=== PATIENT | male | born 1935 | race Caucasian/White ===

== ENCOUNTER 2019-03-01 21:19 | Emergency (ER) | payer MEDICARE, OTHER ==
[~2019-03-01] VITALS: Ht 188 cm; Wt 99.8 kg
[2019-03-01] MEDS ORDERED: LIDOCAINE 2% VISCOUS 15 ML UDC PO ONE (21:45)
--- NOTE | 2019-03-01 21:56 | ED General ---
General Chief Complaint: Bite-Animal/Human/Insect Stated Complaint: TICK EMBEDDED IN RT ANKLE Nursing Triage Note: TICK IN RIGHT LOWER LEG. IT WAS FOUND 45 MIN. AGO BUT A SPOT HAD BEEN NOTICED FOR A WEEK, FELT LIKE A BUMP ITCHING BUT NOT TENDER. Nursing Sepsis Screen: No Definite Risk History of Present Illness Date Seen by Provider: Mar 01, 2019 Time Seen by Provider: 21:54 Initial Comments Patient has had a tick attached to his right lower anterior rothman for approximately one week. His just found out about it tonight and there was concern given how long he has been attached to come be evaluated in the emergency room. Patient has not had any fevers chills arthralgias myalgias rash headache nausea vomiting or abdominal pain. He says that he is healthy with up-to-date immunizations. Allergies and Home Medications Allergies Coded Allergies: No Known Drug Allergies (Unverified , 03/01/19) Patient Home Medication List Home Medication List Reviewed: Yes Review of Systems Review of Systems Constitutional: No chills, No fever Respiratory: No cough Cardiovascular: No chest pain Gastrointestinal: No abdominal pain Musculoskeletal: No joint pain, No joint swelling, No muscle pain Skin: No rash Past Oabdybv-Ytvoig-Hlylyg Hx Patient Social History Recent Foreign Travel: No Contact w/Someone Who Travel: No Recent Infectious Disease Expo: No Physical Exam Vital Signs Vital Signs - First Documented 03/01/19 21:33 Temp 97.2 Pulse 77 Resp 16 B/P (MAP) 130/115 (120) Capillary Refill : Less Than 3 Seconds Height, Weight, BMI Height: 6'2.00" Weight: 220lbs. oz. 99.189350pl; BMI Method:Stated General Appearance: No Apparent Distress, WD/WN Respiratory: Lungs Clear Cardiovascular: Regular Rate, Rhythm Neurologic/Psychiatric: Alert, Oriented x3 Skin: Normal Color, Warm/Dry, Other (tick attached to R lower anterior rothman. No surrounding cellulitis or rash noted. ) Progress/Results/Core Measures Suspected Sepsis Recent Fever Within 48 Hours: No Infection Criteria Present: None New/Unexplained Altered Menta: No Sepsis Screen: No Definite Risk SIRS Temperature:97.2 Pulse: 77 Respiratory Rate: 16 Blood Pressure 130 /115 Mean: 120 Results/Orders My Orders Orders - VANE MOODY DO Lidocaine 2% Viscous 15 Ml (Xylocaine Vi (03/01/19 21:45) Doxycycline Hyclate Tablet (Vibramycin T (03/01/19 22:00) Vital Signs/I&O 03/01/19 21:33 Temp 97.2 Pulse 77 Resp 16 B/P (MAP) 130/115 (120) Capillary Refill : Less Than 3 Seconds Blood Pressure Mean: 120 Progress Note : Progress Note Viscous lidocaine was placed on the tick for approximately 30 minutes and appeared to kill the tick. I used forceps with gentle direct traction and the tick was removed and there was no signs of retained body parts on post-wound examination. Given tick had been present for more than 72 hours a prophylactic dose of doxycycline was given. I told him that he should have the wound rechecked on with his primary care provider which he said he would be able to do. I told him to return with any signs of worsening wound infection or other concerning symptoms such as fevers chills arthralgias or myalgias. Patient and are aware and agreeable with plan and verbalizes understanding of the above instructions. Departure Impression Primary Impression: Tick bite Disposition: 01 HOME, SELF-CARE Condition: Stable Departure-Patient Inst. Decision time for Depature: 22:17 Referrals: DARSHAN MORENO MD (PCP) Primary Care Physician VANE MOODY DO Mar 01, 2019 21:56
[2019-03-01] MEDS ORDERED: DOXYCYCLINE 100 MG (VIBRAMYCIN) TABLET PO SCH (22:00)
[2019-03-01 22:17] VITALS: BP 126/82
== END 2019-03-01 22:19 | disposition home or self-care (01) ==
LOC: ER FS 21:20
DX: S80.861A Insect bite (nonvenomous), right lower leg, initial encounter (principal); W57.XXXA Bitten or stung by nonvenomous insect and other nonvenomous arthropods, initial encounter
CPT/HCPCS: 99283

== ENCOUNTER 2020-01-27 15:33 | Emergency (ER) | payer MEDICARE, OTHER ==
[~2020-01-27] VITALS: Ht 187.9 cm; Wt 97.9 kg
[2020-01-27 15:56] LABS: HEMATOCRIT 44 % (40-54); HEMOGLOBIN 14.8 G/DL (13.3-17.7); MEAN CORPUSCULAR HEMOGLOBIN 33 PG (25-34); MEAN CORPUSCULAR HGB CONC 34 G/DL (32-36); MEAN CORPUSCULAR VOLUME 99 FL (80-99); WHITE BLOOD COUNT 7.4 10^3/uL (4.3-11.0)
[2020-01-27 15:57] LABS: BASOPHILS % (AUTO) 0 % (0-10); EOSINOPHILS % (AUTO) 0 % (0-10); LYMPHOCYTES # (AUTO) 0.4 X 10^3 (1.0-4.0); LYMPHOCYTES % (AUTO) 5 % (12-44); MEAN PLATELET VOLUME 10.5 FL (7.4-10.4); MONOCYTES # (AUTO) 0.1 X 10^3 (0.0-1.0); MONOCYTES % (AUTO) 1 % (0-12); NEUTROPHILS % (AUTO) 94 % (42-75); PLATELET COUNT 150 10^3/uL (130-400)
--- NOTE | 2020-01-27 16:03 | Diagnostic Imaging Report ---
INDICATION: Chest pain. TIME OF EXAM: 3:53 p.m. COMPARISON: No prior studies are available for comparison. FINDINGS: The heart size is normal. The pulmonary vascularity is unremarkable. The lungs are clear. No infiltrate, effusion or pneumothorax is detected. IMPRESSION: No acute cardiopulmonary process is detected. Dictated by: Dictated on workstation # [id number]
[2020-01-27 16:13] LABS: BAND NEUTROPHILS 0 %; BASOPHILS % (MANUAL) 0 %; EOSINOPHILS % (MANUAL) 0 %; LYMPHOCYTES % (MANUAL) 9 %; MONOCYTES % (MANUAL) 0 %; NEUTROPHILS % (MANUAL) 91 %
--- NOTE | 2020-01-27 16:16 | ED General ---
General Chief Complaint: Chest Pain Stated Complaint: CHEST PAIN Nursing Triage Note: Pt ambulatory from [facility] offices with c/o left shoulder pain radiating to left arm and into back. Pt reports pain for up to 10 days. Nursing Sepsis Screen: No Definite Risk Source of Information: Patient, Family Exam Limitations: No Limitations History of Present Illness Date Seen by Provider: Jan 27, 2020 Time Seen by Provider: 13:50 Initial Comments Patient presents with 1 week of intermittent left shoulder pain radiating to his left wrist. Pain comes and goes and seems to be precipitated by certain movements or positions. They last from a few seconds to 20 minutes. Last night was the worst while he was just laying in bed. Has also noticed when raising his left arm over his head to reach in a cabinet or washing his hair, this precipitates sharp and burning pain in the left shoulder. Denies chest pain, palpitations, rapid heart rate or shortness of air. Denies any abdominal pain, nausea, vomiting or diaphoresis. Denies weight loss or back pain. Denies any pain in his ear, neck or jaw on the same side. On arrival patient is pain free and feels fine. Prior to arrival he had pain while driving and using his left hand on top of steering wheel. Denies history of Heart of lung problems. Recently saw PCP, aware of A.fib, was instructed to start taking a baby ASA. Allergies and Home Medications Allergies Coded Allergies: No Known Drug Allergies (Unverified , 03/01/19) Home Medications Hydrocodone/Acetaminophen 1 Each Tablet, 1 TAB PO Q6H Prescribed by: ARDEN DOWNS on 01/27/20 1650 Patient Home Medication List Home Medication List Reviewed: Yes Review of Systems Review of Systems Constitutional: see HPI; No chills, No diaphoresis, No dizziness, No fever, No malaise, No weakness, No weight loss EENTM: No ear pain Respiratory: see HPI Cardiovascular: see HPI; No chest pain, No edema, No palpitations, No syncope Gastrointestinal: see HPI; No abdominal pain, No heartburn, No loss of appetite, No nausea, No vomiting Musculoskeletal: No back pain; joint pain (left shoulder) Past Havrgqx-Fqwmbr-Ozqmdh Hx Past Med/Social Hx: Reviewed Nursing Past Med/Soc Hx Patient Social History Recent Foreign Travel: No Contact w/Someone Who Travel: No Recent Infectious Disease Expo: No Physical Exam Vital Signs Vital Signs - First Documented 3/6/20 15:36 Temp 36.6 Pulse 83 Resp 16 B/P (MAP) 159/94 (115) Pulse Ox 100 O2 Delivery Room Air Capillary Refill : Less Than 3 Seconds Height, Weight, BMI Height: 6'2.00" Weight: 220lbs. oz. 99.156137ou; 27.00 BMI Method:Stated General Appearance: No Apparent Distress, WD/WN HEENT: Normal ENT Inspection, Pharynx Normal Neck: Full Range of Motion, Normal Inspection, Non Tender, Supple Respiratory: Chest Non Tender, Lungs Clear, Normal Breath Sounds Cardiovascular: No Edema, No JVD, Normal Peripheral Pulses, Irregularly Irregular (rate 80's); No Tachycardia Gastrointestinal: Non Tender, Soft; No Distended, No Guarding, No Mass, No Rebound, No Tenderness Back: Normal Inspection, No CVA Tenderness, No Vertebral Tenderness; No CVA Tenderness (L), No CVA Tenderness (R); Muscle Spasm (left medial scapula ms.) Extremity: Normal Capillary Refill, Normal Inspection, Non Tender, No Calf Tenderness, Other (+ impingement sign left shoulder, otherwise NVI, no weakness, no bony abnl or joint effusion) Neurologic/Psychiatric: Alert, Oriented x3, No Motor/Sensory Deficits, Normal Mood/Affect, Other (ataxia- Parkinson's) Skin: Normal Color, Warm/Dry Progress/Results/Core Measures Suspected Sepsis Recent Fever Within 48 Hours: No Infection Criteria Present: None New/Unexplained Altered Menta: No Sepsis Screen: No Definite Risk SIRS Temperature: Pulse: 83 Respiratory Rate: 16 Laboratory Tests 01/27/20 15:44: White Blood Count 7.4 Blood Pressure 159 /94 Mean: 115 Laboratory Tests 01/27/20 15:44: Creatinine 1.39H, Platelet Count 150, Total Bilirubin 0.4 Results/Orders Lab Results Laboratory Tests Test 01/27/20 15:44 Range/Units White Blood Count 7.4 4.3-11.0 10^3/uL Red Blood Count 4.44 4.35-5.85 10^6/uL Hemoglobin 14.8 13.3-17.7 G/DL Hematocrit 44 40-54 % Mean Corpuscular Volume 99 80-99 FL Mean Corpuscular Hemoglobin 33 25-34 PG Mean Corpuscular Hemoglobin Concent 34 32-36 G/DL Red Cell Distribution Width 13.0 10.0-14.5 % Platelet Count 150 130-400 10^3/uL Mean Platelet Volume 10.5 H 7.4-10.4 FL Neutrophils (%) (Auto) 94 H 42-75 % Lymphocytes (%) (Auto) 5 L 12-44 % Monocytes (%) (Auto) 1 0-12 % Eosinophils (%) (Auto) 0 0-10 % Basophils (%) (Auto) 0 0-10 % Neutrophils # (Auto) 7.0 1.8-7.8 X 10^3 Lymphocytes # (Auto) 0.4 L 1.0-4.0 X 10^3 Monocytes # (Auto) 0.1 0.0-1.0 X 10^3 Eosinophils # (Auto) 0.0 0.0-0.3 10^3/uL Basophils # (Auto) 0.0 0.0-0.1 10^3/uL Neutrophils % (Manual) 91 % Lymphocytes % (Manual) 9 % Monocytes % (Manual) 0 % Eosinophils % (Manual) 0 % Basophils % (Manual) 0 % Band Neutrophils 0 % Sodium Level 144 135-145 MMOL/L Potassium Level 4.6 3.6-5.0 MMOL/L Chloride Level 107 98-107 MMOL/L Carbon Dioxide Level 25 21-32 MMOL/L Anion Gap 12 5-14 MMOL/L Blood Urea Nitrogen 18 7-18 MG/DL Creatinine 1.39 H 0.60-1.30 MG/DL Estimat Glomerular Filtration Rate 49 BUN/Creatinine Ratio 13 Glucose Level 178 H 70-105 MG/DL Calcium Level 9.4 8.5-10.1 MG/DL Corrected Calcium 9.1 8.5-10.1 MG/DL Total Bilirubin 0.4 0.1-1.0 MG/DL Aspartate Amino Transf (AST/SGOT) 15 5-34 U/L Alanine Aminotransferase (ALT/SGPT) 17 0-55 U/L Alkaline Phosphatase 82 40-136 U/L Troponin I < 0.30 <0.30 NG/ML Total Protein 7.6 6.4-8.2 GM/DL Albumin 4.4 3.2-4.5 GM/DL My Orders Orders - ARDEN DOWNS DO Ed Iv/Invasive Line Start (01/27/20 15:40) Ekg Tracing (01/27/20 15:40) Chest 1 View Ap/Pa Only (01/27/20 15:40) Cbc With Automated Diff (01/27/20 15:40) Comprehensive Metabolic Panel (01/27/20 15:40) Troponin I Fs (01/27/20 15:40) Manual Differential (01/27/20 15:44) Hydrocodone/Apap 5/325 Tablet (Lortab 5 (01/27/20 17:15) Medications Given in ED Current Medications Medications Dose Ordered Sig/Tabitha Route Start Time Stop Time Status Last Admin Dose Admin Acetaminophen/ Hydrocodone Bitart 1 tab ONCE ONCE PO 01/27/20 17:15 01/27/20 17:16 DC 01/27/20 17:09 1 TAB Vital Signs/I&O 01/27/20 01/27/20 01/27/20 15:36 15:36 17:20 Temp 36.6 Pulse 83 81 Resp 16 16 B/P (MAP) 159/94 (115) 144/81 Pulse Ox 100 97 O2 Delivery Room Air Room Air Room Air Capillary Refill : Less Than 3 Seconds Blood Pressure Mean: 115 Progress Note : Progress Note episodes of sharp pain in shoulder precipitated by movement of LUE. Occurring i ntermittently for the past week. Saw PCP today and given IM steroid. Pain worse at night lying in bed. Episode of left posterior shoulder pain (scapular) while in ER that lasted less than a minute, palpable spasm of medial left scapula ms.....given Hydrocodone. ECG Initial ECG Impression Time: 16:00 Initial ECG Rate: 80 Initial ECG Rhythm: A Fib/Flutter Initial ECG Intervals: Normal Initial ECG Impression: Atrial Fibrillation Initial ECG Comparisson: No Previous ECG Available Departure Impression Primary Impression: Left shoulder pain Qualified Codes: M25.512 - Pain in left shoulder Additional Impression: Impingement syndrome, shoulder, left Disposition: 01 HOME, SELF-CARE Condition: Stable Departure-Patient Inst. Referrals: DARSHAN MORENO MD (PCP) Primary Care Physician Patient Instructions: Shoulder Impingement (DC), Shoulder Pain (DC) Scripts Hydrocodone/Acetaminophen (Hydrocodone/Acetaminophen 5 MG/325 MG TAB) 1 Each Tablet 1 TAB PO Q6H for Pain MDD 10 TABS for 7 Days, #20 TAB Prov: ARDEN DWONS DO 01/27/20 ARDEN DOWNS DO Jan 27, 2020 16:16
[2020-01-27 16:25] LABS: BUN/CREATININE RATIO 13; CARBON DIOXIDE 25 MMOL/L (21-32); CHLORIDE 107 MMOL/L (98-107); CREATININE SERUM 1.39 MG/DL (0.60-1.30); GFR ESTIMATED 49; POTASSIUM 4.6 MMOL/L (3.6-5.0); SODIUM 144 MMOL/L (135-145)
[2020-01-27 16:26] LABS: ALANINE AMINOTRANSFERASE 17 U/L (0-55); ALBUMIN 4.4 GM/DL (3.2-4.5); ALKALINE PHOSPHATASE 82 U/L (40-136); BILIRUBIN,TOTAL 0.4 MG/DL (0.1-1.0); CALCIUM 9.4 MG/DL (8.5-10.1); GLUCOSE 178 MG/DL (70-105); TOTAL PROTEIN 7.6 GM/DL (6.4-8.2)
[2020-01-27] MEDS ORDERED: HYDR-4226 PO (16:50)
[2020-01-27] MEDS ORDERED: HYDROcodone/APAP 5 MG/325 MG (LORTAB) TAB PO ONE (17:15)
[2020-01-27 17:20] VITALS: BP 144/81
--- OUTSIDE RECORDS SUMMARY | 2020-01-31 16:15 | XMS REPORT | Continuity of Care Document ---
Author Organization Unknown Address Unknown Phone Unavailable Allergies Active Description Code Type Severity Reaction Onset Reported/Identified Relationship to Patient Clinical Status Yes No Known Drug Allergies [id number] Drug Allergy Unknown N/A 03/01/2019 Medications There is no data. Problems Date Dx Coded Attending Type Code Diagnosis Diagnosed By 03/01/2019 VANE MOODY DO Ot S80.861A INSECT BITE (NONVENOMOUS), RIGHT LOWER L 03/01/2019 VANE MOODY DO Ot W57.XXXA BIT/STUNG BY NONVENOM INSECT OTH NONVE 03/03/2019 VANE MOODY DO Ot S80.861A INSECT BITE (NONVENOMOUS), RIGHT LOWER L 03/03/2019 VANE MOODY DO Ot W57.XXXA BIT/STUNG BY NONVENOM INSECT OTH NONVE Procedures There is no data. Results Test Result Range CMP - 03/28/19 09:00 GLUCOSE 90 mg/dL 65-139 UREA NITROGEN (BUN) 18 mg/dL 7-25 CREATININE 1.65 mg/dL 0.70-1.11 eGFR NON-AFR. CITIZEN [place] 38 mL/min/1.73m2 > OR = 60 eGFR 44 mL/min/1.73m2 > OR = 60 BUN/CREATININE RATIO 11 (calc) 6-22 SODIUM 141 mmol/L 135-146 POTASSIUM 4.7 mmol/L 3.5-5.3 CHLORIDE 108 mmol/L 98-110 CARBON DIOXIDE 28 mmol/L 20-32 CALCIUM 8.9 mg/dL 8.6-10.3 PROTEIN, TOTAL 6.3 g/dL 6.1-8.1 ALBUMIN 3.8 g/dL 3.6-5.1 GLOBULIN 2.5 g/dL (calc) 1.9-3.7 ALBUMIN/GLOBULIN RATIO 1.5 (calc) 1.0-2. 5 BILIRUBIN, TOTAL 0.8 mg/dL 0.2-1.2 ALKALINE PHOSPHATASE 69 U/L 40-115 AST 12 U/L 10-35 ALT 13 U/L 9-46 CMP - 06/27/19 08:36 GLUCOSE 101 mg/dL 65-99 UREA NITROGEN (BUN) 18 mg/dL 7-25 CREATININE 1.52 mg/dL 0.70-1.11 eGFR NON-AFR. CITIZEN [place] 42 mL/min/1.73m2 > OR = 60 eGFR 49 mL/min/1.73m2 > OR = 60 BUN/CREATININE RATIO 12 (calc) 6-22 SODIUM 143 mmol/L 135-146 POTASSIUM 3.9 mmol/L 3.5-5.3 CHLORIDE 108 mmol/L 98-110 CARBON DIOXIDE 27 mmol/L 20-32 CALCIUM 9.0 mg/dL 8.6-10.3 PROTEIN, TOTAL 6.3 g/dL 6.1-8.1 ALBUMIN 3.8 g/dL 3.6-5.1 GLOBULIN 2.5 g/dL (calc) 1.9-3.7 ALBUMIN/GLOBULIN RATIO 1.5 (calc) 1.0-2. 5 BILIRUBIN, TOTAL 0.8 mg/dL 0.2-1.2 ALKALINE PHOSPHATASE 72 U/L 40-115 AST 14 U/L 10-35 ALT 16 U/L 9-46 CBC w/MANUAL DIFF - 06/27/19 08:36 WHITE BLOOD CELL COUNT 6.5 Thousand/uL 3 .8-10.8 RED BLOOD CELL COUNT 4.50 Million/uL 4.2 0-5.80 HEMOGLOBIN 14.6 g/dL 13.2-17.1 HEMATOCRIT 44.2 % 38.5-50.0 MCV 98.2 fL 80.0-100.0 MCH 32.4 pg 27.0-33.0 MCHC 33.0 g/dL 32.0-36.0 RDW 12.8 % 11.0-15.0 PLATELET COUNT 174 Thousand/uL 140-400 MPV 11.1 fL 7.5-12.5 ABSOLUTE NEUTROPHILS 4108 cells/uL 1500- 7800 ABSOLUTE MONOCYTES 546 cells/uL 200-950 ABSOLUTE EOSINOPHILS 137 cells/uL 15-500 ABSOLUTE BASOPHILS 65 cells/uL 0-200 NEUTROPHILS 63.2 % NRG LYMPHOCYTES 25.3 % NRG MONOCYTES 8.4 % NRG EOSINOPHILS 2.1 % NRG BASOPHILS 1.0 % NRG ABSOLUTE LYMPHOCYTES 1645 cells/uL 850-3 900 PLATELET ESTIMATION ADEQUATE ADEQUATE CBC MORPHOLOGY NORMAL CMP - 10/03/19 08:21 GLUCOSE 95 mg/dL 65-99 UREA NITROGEN (BUN) 20 mg/dL 7-25 CREATININE 1.48 mg/dL 0.70-1.11 eGFR NON-AFR. CITIZEN [place] 44 mL/min/1.73m2 > OR = 60 eGFR 51 mL/min/1.73m2 > OR = 60 BUN/CREATININE RATIO 14 (calc) 6-22 SODIUM 143 mmol/L 135-146 POTASSIUM 4.1 mmol/L 3.5-5.3 CHLORIDE 107 mmol/L 98-110 CARBON DIOXIDE 28 mmol/L 20-32 CALCIUM 9.2 mg/dL 8.6-10.3 PROTEIN, TOTAL 6.8 g/dL 6.1-8.1 ALBUMIN 4.1 g/dL 3.6-5.1 GLOBULIN 2.7 g/dL (calc) 1.9-3.7 ALBUMIN/GLOBULIN RATIO 1.5 (calc) 1.0-2. 5 BILIRUBIN, TOTAL 0.8 mg/dL 0.2-1.2 ALKALINE PHOSPHATASE 71 U/L 40-115 AST 14 U/L 10-35 ALT 16 U/L 9-46 Complete blood count (CBC) with automate d white blood cell (WBC) differential - 01/27/20 15:44 Blood leukocytes automated count (number/volume) 7.4 10*3/uL 4.3-11.0 Blood erythrocytes automated count (number/volume) 4.44 10*6/uL 4.35-5.85 Venous blood hemoglobin measurement (mass/volume) 14.8 g/dL 13.3-17.7 Blood hematocrit (volume fraction) 44 % 40-54 Automated erythrocyte mean corpuscular volume 99 [ foz_us] 80-99 Automated erythrocyte mean corpuscular h emoglobin (mass per erythrocyte) 33 pg 25-34 Automated erythrocyte mean corpuscular h emoglobin concentration measurement (mass/volume) 34 g/dL 32-36 Automated erythrocyte distribution width ratio 13. 0 % 10.0- 14.5 Automated blood platelet count (count/volume) 150 10*3/uL 130-400 Automated blood platelet mean volume measurement 10.5 [foz_us] 7.4-10.4 Automated blood neutrophils/100 leukocytes 94 % 42-75 Automated blood lymphocytes/100 leukocytes 5 % 12-44 Blood monocytes/100 leukocytes 1 % 0-12 Automated blood eosinophils/100 leukocytes 0 % 0-10 Automated blood basophils/100 leukocytes 0 % 0-10 Blood neutrophils automated count (number/volume) 7.0 10*3 1.8-7.8 Blood lymphocytes automated count (number/volume) 0.4 10*3 1.0-4.0 Blood monocytes automated count (number/volume) 0. 1 10*3 0.0-1.0 Automated eosinophil count 0.0 10*3/uL 0 .0-0.3 Automated blood basophil count (count/volume) 0.0 10*3/uL 0.0-0.1 Manual absolute plasma cell count - 0305/12 15:44 Blood monocytes/100 leukocytes 0 % NRG Manual blood segmented neutrophils/100 leukocytes 91 % NRG Blood band neutrophils/100 leukocytes 0 % NRG Manual blood lymphocytes/100 leukocytes 9 % NRG Manual eosinophils/100 leukocytes in nose 0 % NRG Manual blood basophils/100 leukocytes 0 % NRG Comprehensive metabolic panel - 01/27/20 15:44 Serum or plasma sodium measurement (moles/volume) 144 mmol/L 135-145 Serum or plasma potassium measurement (moles/volume) 4.6 mmol/L 3.6-5.0 Serum or plasma chloride measurement (moles/volume) 107 mmol/L 98-107 Carbon dioxide 25 mmol/L 21-32 Serum or plasma anion gap determination (moles/volume) 12 mmol/L 5-14 Serum or plasma urea nitrogen measurement (mass/volume ) 18 mg/dL 7-18 Serum or plasma creatinine measurement (mass/volume) 1.39 mg/dL 0.60-1.30 Serum or plasma urea nitrogen/creatinine mass ratio 13 NRG Serum or plasma creatinine measurement w ith calculation of estimated glomerular filtration rate 49 NRG Serum or plasma glucose measurement (mass/volume) 178 mg/dL 70-105 Serum or plasma calcium measurement (mass/volume) 9.4 mg/dL 8.5-10.1 Serum or plasma total bilirubin measurement (mass/volu me) 0.4 mg/dL 0.1-1.0 Serum or plasma alkaline phosphatase elvin surement (enzymatic activity/volume) 82 U/L 40-136 Serum or plasma aspartate aminotransfera se measurement (enzymatic activity/volume) 15 U/L 5-34 Serum or plasma alanine aminotransferase measurement (enzymatic activity/volume) 17 U/L 0-55 Serum or plasma protein measurement (mass/volume) 7.6 g/dL 6.4-8.2 Serum or plasma albumin measurement (mass/volume) 4.4 g/dL 3.2-4.5 CALCIUM CORRECTED 9.1 mg/dL 8.5-10.1 TROPONIN I FS - 01/27/20 15:44 TROPONIN I FS < 0.30 <0.30 Encounters ACCT No. Visit Date/Time Discharge Status Pt. Type Provider Facility Loc./Unit Complaint [id number] 06/30/2019 09:30:00 06/30/2019 23:59: 59 [id number] 10/03/2019 08:15:00 Document Registration [id number] 06/27/2019 08:30:00 Document Registration [id number] 03/28/2019 10:00:00 Document Registration [id number] 01/27/2020 15:34:00 020 17:20:00 DIS Emergency ARDEN DOWNS DO [facility] ER FS CHEST PAIN [id number] 03/01/2019 21:20:00 019 22:19:00 DIS Emergency VANE MOODY DO [facility] ER FS TICK EMBEDDED IN RT ANK LE
== END 2020-01-27 17:20 | disposition home or self-care (01) ==
LOC: EDUNIT# 15:33 → ER FS 15:34
DX: M75.42 Impingement syndrome of left shoulder (principal); I48.91 Unspecified atrial fibrillation
CPT/HCPCS: 36415; 71045; 80053; 84484; 85007; 85027; 93005

== ENCOUNTER → 2020-01-31 | Outpatient (CLI) | payer MEDICARE, OTHER ==
[~2020-01-31] MED LIST: HYDR-4226 PO
--- NOTE | 2020-01-31 14:37 | Diagnostic Imaging Report ---
INDICATION: Shoulder pain COMPARISON: None. FINDINGS: 3 views of the left shoulder were obtained. There is no fracture, dislocation, or other acute bony abnormality identified. The soft tissues appear unremarkable. No radiopaque foreign bodies identified. The visualized portions of the left lung are clear. IMPRESSION: Unremarkable radiographic exam of the left shoulder. Dictated by: Dictated on workstation # [id number]
== END ==
LOC: RAD FS 14:16
PROVIDERS: ATTEND Nurse Practitioner
DX: M25.512 Pain in left shoulder (principal)
CPT/HCPCS: 73030